=== PATIENT | male | born 1975 | race African-American/Black ===

== ENCOUNTER 2016-10-31 21:02 | Emergency (ER) | payer OTHER ==
[~2016-10-31 21:02] MED LIST: FLEXERIL10 MG PO; GUAFENESIN400 MG PO; MEDROL DOSEPAK1 PAC PO; METOPROLOL SUCC50 M1 PO; MOTRIN800 MG PO; NEXIUM 40MG40 MG PO; PERCOCET 325 MG1 TA2 PO; TESSALON PERLE100 MG PO; VERAPAMIL HCL120 MG PO; ZOFRAN4 M1 SL
--- NOTE | 2016-10-31 22:49 | ED THROAT/DENTAL COMPLAINT ---
History of Present Illness General Chief Complaint: Sore Throat, Dental Pain Stated Complaint: SORE THROAT Source: patient Exam Limitations: no limitations Vital Signs & Intake/Output Vital Signs & Intake/Output Vital Signs Date Time Temp Pulse Resp B/P B/P Pulse O2 O2 Flow FiO2 Mean Ox Delivery Rate 10/31 2255 98.1 93 18 137/95 100 Room Air ED Intake and Output 11/01 0000 06 1200 Intake Total Output Total Balance Patient 172 lb Weight Allergies Coded Allergies: NO KNOWN ALLERGIES (12/10/12) Reconcile Medications Benzonatate (Tessalon Perle) 100 MG SGL 1 TAB PO TID COUGH Guaifenesin (Guafenesin) 400 MG TAB 1 TAB PO TID COUGH Methylprednisolone. (Medrol) 1 PAC PAC 1 PAC PO AD INFLAMMATION Metoprolol Succinate (Metoprolol Succinate XL) [address] 1 TAB PO DAILY BP ( Reported) VERAPAMIL HCL (Verapamil ER) 120 MG CAP24H.PEL 1 TAB PO DAILY HEART (Reported ) Triage Note: PER PT REAL BAD SORE THROAT, PT STARTED WITH COUGH BUT TODAY THROAT STARTED Triage Nurses Notes Reviewed? yes HPI: Mr. Finney is a 41 yo m w/ PMH of HTN, asthma, and migraines presenting to ED for sore throat. Patient states he's been having a cough for the past week. He was seen by his primary care doctor several times this week including today where he had a chest x-ray done. He was told he does not have a pneumonia. In the past week the patient has been given Zyrtec as well as benzoate help relieve his symptoms. Initially his throat felt hoarse related to the cough. Today the sore throat became excruciating and he could no longer tolerate it. Pt denies fever, chills, abd pain, COYNE, changes in vision, N/V/D. Pt states his voice is higher pitch than normal. Daughter () is ill w/ ear infection. (ASHOK RAMIREZ,DOMENICA) Past History Travel History Traveled to [place] past 21 day No Medical History Any Pertinent Medical History? see below for history Neurological: migraine Cardiovascular: hypertension Respiratory: asthma Gastrointestinal: NONE Hepatic: NONE Renal: NONE Musculoskeletal: NONE Psychiatric: NONE Endocrine: NONE Blood Disorders: NONE Cancer(s): NONE Surgical History Surgical History: TIB/FIB FRACTURE Psychosocial History What is your primary language Monegasque Tobacco Use: Never used Family History Hx Contributory? No (DOMENICA PULIDO MD) Review of Systems Review of Systems Constitutional: Reports: see HPI. EENTM: Reports: throat pain. Denies: visual changes, ear pain, nasal congestion. Respiratory: Reports: cough. Cardiovascular: Reports: no symptoms. GI: Reports: no symptoms. Genitourinary: Reports: no symptoms. Musculoskeletal: Reports: no symptoms. Skin: Reports: no symptoms. Neurological/Psychological: Reports: no symptoms. Hematologic/Endocrine: Reports: no symptoms. Immunologic/Allergic: Reports: no symptoms. All Other Systems: Reviewed and Negative (DOMENICA PULIDO MD) Physical Exam Physical Exam General Appearance: well developed/nourished, no apparent distress, alert, awake , comfortable Head: atraumatic, normal appearance Eyes: Bilateral: normal appearance, PERRL, EOMI. Ears: Bilateral: canal normal, Tympanic normal. Nose: normal inspection Mouth/Throat: normal mouth inspection, voice changes, mild pharyngeal erythema. anterior cervical lymphadenopathy. Neck: normal inspection, supple, full range of motion, trachea midline, lymphadenopathy (R), lymphadenopathy (L), no meningismus. No neck stiffness. Cardiovascular/Respiratory: normal breath sounds, normal peripheral pulses, regular rate/rhythm, no respiratory distress Gastrointestinal: soft, nontender Back: normal inspection, normal range of motion Neurologic/Psych: no motor/sensory deficits, awake, alert, oriented x 3, normal gait, normal mood/affect Skin: intact, normal color, warm/dry Core Measures ACS in differential dx? No Severe Sepsis Present: No Septic Shock Present: No (DOMENICA PULIDO MD) Progress Differential Diagnosis: epiglottitis, Ludwigs angina, meningitis, odontogenic abscess, kathy-tonsillar abscess, stomatitis/gingivitis, strep pharyngitis, tooth fracture Plan of Care: Orders Procedure Date/time Status THROAT CULTURE W/QUICK STREP 10/31 2133 Active Patient is ill-appearing but nontoxic. Cervical adenopathy and sore throat noted. Mild posterior oropharyngeal erythema. No exudate to suggest strep pharyngitis. Patient no longer has his tonsils as they were removed in mid-20s. Patient does have a slight change in voice that was noted by me and he confirms. Despite triage summary, the patient does not have any dental pain. Some mild cervical adenopathy, but no submandibular swelling to suggest Luke angina. Patient has full range of motion of his neck without evidence of meningismus. Dentition appears to be intact with no obvious evidence of odontogenic infection. Patient has tonsils removed but there is no evidence of exudate. Given the change in voice and midline neck pain anteriorly, plan to obtain an x-ray of the neck to assess for possible epiglottitis. X-ray negative. Epiglottis appears to be normal size. Patient given Magic mouthwash with some relief. We will discharge home with prescription for Magic mouthwash and follow-up with his PMD. Patient given return precautions. (DOMENICA PULIDO MD) Departure Departure Time of Disposition: 2320 Disposition: HOME OR SELF CARE Condition: Stable Clinical Impression Primary Impression: Pharyngitis Qualifiers: Pharyngitis/tonsillitis etiology: unspecified etiology Qualified Code: J02.9 - Acute pharyngitis, unspecified Referrals: YEIMI WINN MD (PCP/Family) Additional Instructions: Please and gargle with the magic mouth wash. You can also alternate between swishing/ swallowing and swishing/spitting. If you notice worsening pain, change in your voice or any other concerning symptoms, please return to the emergency department for further evaluation. Departure Forms: Customer Survey General Discharge Information (DOMENICA PULIDO MD) Resident Co-Sign Statement Statement: ED Attending supervision documentation- [X] I saw and evaluated the patient. I have also reviewed all the pertinent lab results and diagnostic results. I agree with the findings and the plan of care as documented in the Resident's documentation. [X] I have reviewed the ED Record and agree with the Resident's documentation. [] Additions or exceptions (if any) to the Resident's note and plan are summarized below: [] (NIDHI RAMIREZ,LUCA Bruce)
[2016-10-31 22:55] VITALS: BP 137/95
--- NOTE | 2016-10-31 22:55 | RADIOLOGY REPORT ---
EXAMINATION: XR SOFT TISSUE NECK CLINICAL INDICATION: Sore throat and neck pain. Cervical adenopathy. COMPARISON: None TECHNIQUE: 2 views of the soft tissue neck were obtained. FINDINGS: Soft tissue films of the neck demonstrate normal larynx, pharynx and upper trachea. No soft tissue swelling or opaque foreign body is demonstrated. The epiglottis appears normal. The lung apices are clear. The osseous structures are unremarkable. IMPRESSION: Unremarkable examination. The epiglottis appears normal.
== END 2016-10-31 23:36 ==
LOC: ERH 21:02
DX: J02.9 Acute pharyngitis, unspecified (principal)
CPT/HCPCS: 70360